=== PATIENT | female | born 1990 | race Caucasian/White ===

== ENCOUNTER 2021-02-11 16:11 | Emergency (ER) | payer OTHER, MEDICAID ==
[~2021-02-11] VITALS: Ht 160 cm; Wt 90.7 kg
[2021-02-11 16:12] VITALS: BP_SYST 142
[2021-02-11 20:50] LABS: BASOPHILS % (AUTO) 0.3 % (0.0-2.0); EOSINOPHILS # (AUTO) 0.2 K/uL (0.0-0.4)
[2021-02-11 21:06] LABS: EOSINOPHILS % (AUTO) 2.1 % (0.0-4.0); HEMATOCRIT 29.2 % (36-48); HEMOGLOBIN 9.1 g/dL (12.0-16.0); LYMPHOCYTES # (AUTO) 2.5 K/uL (1.0-5.5); LYMPHOCYTES % (AUTO) 25.1 % (20.5-51.5); MEAN CORPUSCULAR HEMOGLOBIN 24 pg (27-31); MEAN CORPUSCULAR HGB CONC 31 % (32-36); MEAN CORPUSCULAR VOLUME 77 fL (79.0-98.0); MONOCYTES # (AUTO) 0.4 K/uL (0.0-1.0); NEUTROPHILS # (AUTO) 6.8 K/uL (1.8-7.7); NEUTROPHILS % (AUTO) 68.5 % (40.0-70.0); PLATELET COUNT (AUTO) 388 K/uL (130-430); RED CELL DISTRIBUTION WIDTH 17.6 % (9.0-15.0); WHITE BLOOD COUNT (AUTO) 9.9 K/uL (4.8-10.8)
[2021-02-11 21:23] LABS: CREATININE 0.76 mg/dL (0.55-1.30); POTASSIUM 4.6 mmol/L (3.5-5.1)
[2021-02-11 21:28] LABS: ALBUMIN 2.6 g/dL (3.4-4.8); TOTAL BILIRUBIN 0.4 mg/dL (0.0-1.0)
[2021-02-11] MEDS ORDERED: IOHEXOL 350 mgI/mL, 150 ML INFUS..BTL IV ONE (22:42)
[2021-02-12 00:42] VITALS: BP_SYST 147
== END 2021-02-12 00:42 | disposition home or self-care (01) ==
LOC: SED 16:11
DX: K21.9 Gastro-esophageal reflux disease without esophagitis (principal); R07.89 Other chest pain
CPT/HCPCS: 36415; 71045; 71275; 76376; 80053; 84484; 85025; 85379; 93005; 99285; Q9967

== ENCOUNTER 2022-10-05 07:20 | Inpatient (IN) | payer BC, MEDICAID ==
[~2022-10-05] VITALS: Ht 160 cm; Wt 86.2 kg
[2022-10-05] MEDS ORDERED: TERBUTALINE SULFATE 1 MG/ML VIAL SUBCUT ONE (08:45)
[2022-10-05] MEDS ORDERED: LR 1,000 ML IV ONE (08:45)
[2022-10-05] MEDS ORDERED: CEFAZOLIN 2 GM IVPB PREMIX 50 ML IV ONE ×2 (08:45→12:11)
[2022-10-05] MEDS ORDERED: AMPICILLIN SODIUM 2 GM in NS 100 ML IV ONE (08:45)
[2022-10-05] MEDS ORDERED: TERBUTALINE SULFATE 1 MG/ML VIAL ONE (08:46)
[2022-10-05 08:55] VITALS: BP_SYST 139
[2022-10-05 09:10] LABS: BASOPHILS % (AUTO) 0.4 % (0.0-2.0); EOSINOPHILS % (AUTO) 0.3 % (0.0-4.0); HEMATOCRIT 32.3 % (36-48); HEMOGLOBIN 10.3 g/dL (12.0-16.0); LYMPHOCYTES # (AUTO) 2.2 K/uL (1.0-5.5); LYMPHOCYTES % (AUTO) 21.2 % (20.5-51.5); MEAN CORPUSCULAR HEMOGLOBIN 25 pg (27-31); MEAN CORPUSCULAR HGB CONC 32 % (32-36); MEAN CORPUSCULAR VOLUME 78 fL (79.0-98.0); MONOCYTES # (AUTO) 0.4 K/uL (0.0-1.0); MONOCYTES % (AUTO) 3.9 % (1.7-9.3); NEUTROPHILS # (AUTO) 7.6 K/uL (1.8-7.7); NEUTROPHILS % (AUTO) 74.2 % (40.0-70.0); PLATELET COUNT (AUTO) 221 K/uL (130-430); RED BLOOD CELL COUNT(AUTO) 4.15 MIL/uL (4.2-6.2); RED CELL DISTRIBUTION WIDTH 18.1 % (9.0-15.0); WHITE BLOOD COUNT (AUTO) 10.2 K/uL (4.8-10.8)
[2022-10-05] MEDS ORDERED: LR 1,000 ML IV SCH (11:15)
[2022-10-05] MEDS ORDERED: MEASLES,MUMPS&RUBELLA VACC/PF 12500 UNIT/0.5 ML VIAL SUBQ PRN (11:15)
[2022-10-05] MEDS ORDERED: HYDROcodone/ACETAMIN 5-325 MG TAB (NORCO/ VICODIN) PO PRN (11:15)
[2022-10-05] MEDS ORDERED: TEMAZEPAM 15 MG CAPSULE PO PRN (11:15)
[2022-10-05] MEDS ORDERED: NALOXONE HCL 0.4 MG/ML AMP (NARCAN) IVP PRN ×2 (11:15→12:15)
[2022-10-05] MEDS ORDERED: RHO(D) IMMUNE GLOBULIN/MALTOSE 1500 UNITS/1.3 ML (WINHRO) IM PRN (11:15)
[2022-10-05] MEDS ORDERED: LANOLIN 7 GM OINT. TP PRN (11:15)
[2022-10-05] MEDS ORDERED: DIPHTH,PERTUSS(ACELL),TET VAC 0.5 ML VIAL (Tdap) I.M. PRN (11:15)
[2022-10-05] MEDS ORDERED: BISACODYL 10 MG/SUPPOSITORY RC PRN (11:15)
[2022-10-05] MEDS ORDERED: ANUSOL 1 EA SUPP.RECT (PREPARATION H) RC PRN (11:15)
[2022-10-05] MEDS ORDERED: KETOROLAC TROMETHAMINE 30 MG VIAL IVP SCH (12:00)
[2022-10-05] MEDS ORDERED: CEFAZOLIN 1 GM IVPB PREMIX 50 ML IV SCH (12:00)
[2022-10-05 12:08] VITALS: BP_SYST 135
[2022-10-05] MEDS ORDERED: LR 1,000 ML IV.SOLN IV ONE (12:11)
[2022-10-05] MEDS ORDERED: OXYTOCIN/0.9 % SODIUM CHLORIDE 20 UNITS/1,000 ML BAG IV ONE (12:11)
[2022-10-05] MEDS ORDERED: BUPIVACAINE /PF 0.75% 10 ML VIAL INJ ONE (12:11)
[2022-10-05] MEDS ORDERED: MORPHINE SULFATE 10 MG/ML VIAL ONE (12:11)
[2022-10-05] MEDS ORDERED: ONDANSETRON HCL 4 MG/2 ML VIAL ONE (12:11)
[2022-10-05] MEDS ORDERED: fentaNYL CITRATE/PF 100 MCG/2 ML AMP ONE (12:11)
[2022-10-05] MEDS ORDERED: MIDAZOLAM HCL 5 MG/ML VIAL (VERSED) IV ONE (12:11)
[2022-10-05] MEDS ORDERED: OXYTOCIN 10 UNIT/ML VIAL ONE (12:11)
[2022-10-05] MEDS ORDERED: ePHEDrine sulfate 50 MG/ML VIAL ONE (12:11)
[2022-10-05] MEDS ORDERED: METOCLOPRAMIDE HCL 10 MG/2 ML VIAL ONE (12:11)
[2022-10-05] MEDS ORDERED: NS IRRIG SOLN 1000 ML IR ONE (12:11)
[2022-10-05] MEDS ORDERED: DIPHENHYDRAMINE INJ 50 MG/ML VIAL IM PRN (12:15)
[2022-10-05] MEDS ORDERED: ONDANSETRON HCL 4 MG/2 ML VIAL IVP PRN (12:15)
[2022-10-05] MEDS ORDERED: KETOROLAC TROMETHAMINE 60 MG/2 ML VIAL IM PRN (12:15)
[2022-10-05] MEDS: OXYTOCIN/0.9 % SODIUM CHLORIDE 1,000 ML IV SCH (17:19)
[2022-10-05] MEDS: CEFAZOLIN 1 GM IVPB PREMIX 50 ML IV SCH ×2 (17:35→23:52)
[2022-10-05] MEDS: KETOROLAC TROMETHAMINE 30 MG VIAL IVP SCH ×2 (17:38→23:51)
[2022-10-05] MEDS ORDERED: IBUPROFEN 600 MG TABLET PO SCH (18:00)
[2022-10-05] MEDS: guaiFENesin 200 MG/CODEINE 20 MG/ 10 ML UDC PO PRN (20:08)
[2022-10-05] MEDS ORDERED: SENNOSIDES/DOCUSATE SODIUM 1 TAB TABLET(SENOKOT-S) PO SCH (21:00)
[2022-10-06] MEDS: OXYTOCIN/0.9 % SODIUM CHLORIDE 1,000 ML IV SCH ×2 (01:07→09:23)
[2022-10-06] MEDS: guaiFENesin 200 MG/CODEINE 20 MG/ 10 ML UDC PO PRN ×5 (03:06→23:55)
[2022-10-06] MEDS: KETOROLAC TROMETHAMINE 30 MG VIAL IVP SCH ×2 (05:35→11:29)
[2022-10-06] MEDS: CEFAZOLIN 1 GM IVPB PREMIX 50 ML IV SCH (05:35)
[2022-10-06 07:15] LABS: BASOPHILS % (AUTO) 0.2 % (0.0-2.0); EOSINOPHILS % (AUTO) 0.2 % (0.0-4.0); HEMOGLOBIN 9.2 g/dL (12.0-16.0); LYMPHOCYTES # (AUTO) 1.5 K/uL (1.0-5.5); LYMPHOCYTES % (AUTO) 17.2 % (20.5-51.5); MEAN CORPUSCULAR HEMOGLOBIN 25 pg (27-31); MEAN CORPUSCULAR HGB CONC 32 % (32-36); MEAN CORPUSCULAR VOLUME 78 fL (79.0-98.0); MONOCYTES # (AUTO) 0.3 K/uL (0.0-1.0); MONOCYTES % (AUTO) 3.4 % (1.7-9.3); NEUTROPHILS # (AUTO) 7.1 K/uL (1.8-7.7); PLATELET COUNT (AUTO) 197 K/uL (130-430)
[2022-10-06] MEDS: DOCUSATE SODIUM 100 MG CAPSULE PO SCH ×2 (09:06→20:16)
[2022-10-06] MEDS: SIMETHICONE 80 MG TAB.CHEW PO PRN ×4 (09:07→21:33)
[2022-10-06] MEDS: OXYCODONE/ACETAMINOPHEN 5-325 TABLET PO PRN ×2 (09:07→15:22)
[2022-10-06] MEDS: ALBUTEROL SULFATE 0.083% 2.5 MG/3 ML VIAL.NEB INH PRN ×3 (12:44→20:41)
[2022-10-06] MEDS: IBUPROFEN 600 MG TABLET PO SCH ×2 (17:28→23:43)
[2022-10-06] MEDS: OXYCODONE/ACETAMINOPHEN *10*mg/325 mg TABLET PO PRN ×2 (17:28→21:34)
[2022-10-07] MEDS: SIMETHICONE 80 MG TAB.CHEW PO PRN ×4 (01:00→12:08)
[2022-10-07] MEDS: OXYCODONE/ACETAMINOPHEN *10*mg/325 mg TABLET PO PRN (01:00)
[2022-10-07] MEDS: IBUPROFEN 600 MG TABLET PO SCH ×2 (06:00→12:08)
[2022-10-07] MEDS: DOCUSATE SODIUM 100 MG CAPSULE PO SCH (09:16)
== END 2022-10-07 14:00 | disposition home or self-care (01) | DRG 786 ==
LOC: OBSVTOIN 07:20 → SPU 07:20
PROVIDERS: ADMIT Specialist; ATTEND Specialist
PROC: 10D00Z1 Extraction of Products of Conception, Low, Open Approach (ICD-10-PCS; principal; 2022-10-05 11:00)
DX: O34.211 Maternal care for low transverse scar from previous cesarean delivery (principal); O60.23X0 Term delivery with preterm labor, third trimester, not applicable or unspecified; O42.92 Full-term premature rupture of membranes, unspecified as to length of time between rupture and onset of labor; Z20.822 Contact with and (suspected) exposure to COVID-19; Z3A.37 37 weeks gestation of pregnancy; Z37.0 Single live birth; O99.52 Diseases of the respiratory system complicating childbirth; R05.3 Chronic cough
CPT/HCPCS: 36415; 85025; 86592; 86780; 86886; 86900; 86901; 94640; 94760; J0290; J0690; J1200; J1885; J2250; J2270; J2405; J2590; J2765; J3010; J3105; J3490; J7120; J7613